=== PATIENT | female | born 1995 | race Caucasian/White ===

== ENCOUNTER 2016-07-17 12:15 | Outpatient (CLI) | payer MEDICAID ==
[~2016-07-17] VITALS: Ht 154.9 cm; Wt 47.2 kg
[2016-07-17] MEDS ORDERED: PREN1TAB17 PO (12:19)
[2016-07-17 12:20] VITALS: Ht 154.9 cm; Wt 47.2 kg
[2016-07-17 12:21] VITALS: BP 100/60; RESP 16
[2016-07-17] MEDS: LACTATED RINGER'S 1,000 ML IV PRN ×2 (12:39→14:29)
--- NOTE | 2016-07-17 14:33 | RADRPT ---
PROCEDURE: US OB biophysical profile. CLINICAL INDICATION: Low EDILIA TECHNIQUE: Multiple sonographic images of the pelvis were obtained. The images were reviewed on a PACS workstation. COMPARISON: No prior studies are available for comparison. FINDINGS: There is a single viable intrauterine gestation. Cardiac activity is present with 144 beats per min [place]. There is a vertex presentation. The placenta is anterior. There is no evidence of placental abruption. There is a low - normal amount of amniotic fluid with an EDILIA = 8.5 cm. Biophysical profile: movement 2/2 tone 2/2. breathing 2/2 EDILIA 2/2 Total 09/23 RPTAT: AA . IMPRESSION: Normal biophysical profile. Low - normal EDILIA of 8.5 cm. Physician Nicole Date Time Electronically viewed and signed by Physician Nicole on 07/17/2016 14:33 /
--- NOTE | 2016-07-17 15:13 | TRIAGE ---
OB Triage Datetime Report Generated by CPN: 07/17/2016 15:12 Datetime: 07/17/2016 13:41 Stage of : OB Triage Labor Evaluation Frequency: 0 Monitor Mode: External Pattern: Normal: <= 5 Contractions in 10 Minutes Resting Tone [place]: Relaxed Heart Rate FHR Baseline Rate: 145 Monitor Mode: External US Variability: Moderate 6-25 bpm Accelerations: 15X15 Decelerations: None Category: Category I Pain Presence: None/Denies Datetime: 07/17/2016 12:26 Stage of : OB Triage Assessment Type: Triage Maternal Assessment Level of Consciousness: Fully Conscious DTR's/Clonus: DTRs 2+; No Clonus Headache: Denies Blurred Vision: No Respiratory Effort: Unlabored; Regular Rhythm; Equal Expansion Breath Sounds, Left: Clear and Equal Breath Sounds, Right: Clear and Equal Nausea/Vomiting: Denies RUQ Epigastric Pain: Denies Lower Extremities Edema: None Degree: None Upper Extremities Edema: None Degree: None Facial Edema: None Temperature Route: Oral Fall Risk Assessment History of Falling: (0) No Secondary Diagnosis: (0) No Ambulatory Aid: (0) Bedrest/Nurse Assist IV Therapy: (0) No Gait: (0) Normal/Bedrest/Immobile Mental Status: (0) Oriented to Own Ability Fall Score: 0 Fall Risk Score Definition: No Risk: No action required Labor Evaluation Frequency: 0 Monitor Mode: External Heart Rate FHR Baseline Rate: 135 Monitor Mode: External US Variability: Moderate 6-25 bpm Accelerations: 15X15 Decelerations: None Pain Assessment Pain Scale: 0 Pain Presence: None/Denies Pain Type: N/A Datetime: 07/17/2016 12:24 Time of Arrival: 07/17/2016 12:19 EGA: 39.1 Arrived By: Ambulatory Arrived From: Dr. Tidwell Chief Complaint: SENT FROM [facility] FOR LOW EDILIA Movement: Present Rupture of Membranes: Denies Vaginal Bleeding: None Vaginal Discharge: Denies Recent Sexual Intercouse: Denies Abdominal Trauma: Not Applicable Patient Complaints: None Time Provider Notified: 07/17/2016 14:30 Provider Notified: DR. MARIA Initial Plan: EFMX2, IV HYDRATION
--- NOTE | 2016-07-17 15:14 | CONS ---
Date/Time of Note Date/Time of Note DATE: 07/17/16 TIME: 15:09 Consultation Date/Type/Reason Admit Date/Time July 17, 2069 OB triage consult Reason for Consultation This patient is a 20 years old 1 para 0 with estimated date of confinement of July 23, 2016 which makes her 39 weeks and 1 day today. She was referred here from [facility] , due to low EDILIA of 7.6cm On general examination she is a well-developed well-nourished lady near term. Her general vital signs are stable blood pressure 100/60, pulse rate 82, respirations 16, and temperature 97.9. On examination her abdomen is soft fetus in vertex presentation she does not have one of much of the contractions no CVA tenderness Hx of Present Illness Current Medications Medications (Trade) Dose Ordered Sig/Lilo Route PRN Reason Start Time Stop Time Status Last Admin Dose Admin Lactated Ringer's (Lr) 1,000 ml @ 1,000 mls/hr Q1H PRN IV low edilia 07/17/16 12:30 07/17/16 14:29 1,000 MLS/HR Constitutional: No chills, No diaphoresis, No disoriented, No febrile, No improved, No no complaints, No other, No poor po, No requiring IVF, No requiring O2 Eyes: No discharge, No no complaints, No other, No pain, No redness, No visual change ENT: No bleeding, No congestion, No discharge, No dysphagia, No no complaints, No other, No pain, No sore throat Respiratory: No cough, No no complaints, No other, No pain, No pleuritic pain, No shortness of breath, No sputum, No wheezing Cardiovascular: No chest pain, No edema, No lightheadedness, No no complaints, No orthopenea, No other, No palpitations, No paroxysmal nocturnal dyspnea Gastrointestinal: No blood, No constipation, No decreased appetite, No diarrhea , No flatus, No nausea, No no complaints, No other, No pain, No passing stool, No vomiting Genitourinary: other (No dysuria), No bleeding, No discharge, No dysuria, No flank pain, No hematuria, No no complaints Musculoskeletal: No back pain, No bone/joint pain, No neck pain, No no complaints, No other, No restricted range of motion, No swelling Skin: No bruising, No erythema, No laceration, No no complaints, No other, No pruritis, No rash, No skin lesions Neurologic: other (Knee-jerk reflex are normal), No confusion, No dizziness, No focal-weakness, No headache, No no complaints , No seizure, No syncope Endocrine: No dry skin, No no complaints, No other, No polydypsia, No polyuria , No temp intolerance Additional Comments Hydration was given and her EDILIA increased to 8.5 cm .Ultrasound study report was single viable intrauterine gestation with cardiac activity 144 bpm ,vertex presentation ,placenta was anterior, and as I mentioned before,EDILIA was reported 8.5 cm Biophysical profile of 09/23 Disposition. With these positive finding patient was discharged home to be followed in the clinic tomorrow for another EDILIA. Social History Smoking Status: Never smoker Exam/Review of Systems Vital Signs Vitals Vital Signs Date Time Temp Pulse Resp B/P Pulse Ox O2 Delivery O2 Flow Rate FiO2 07/17/16 12:21 97.9 16 100/60 Room Air Medications Medications Current Medications Lactated Ringer's (Lr) 1,000 ml @ 1,000 mls/hr Q1H PRN IV low edilia Last administered on 07/17/16t 14:29; Admin Dose 1,000 MLS/HR; Start 07/17/16 at 12:30 ADRIEN SARKAR MD Jul 17, 2016 15:14
--- NOTE | 2016-07-18 14:16 | NSTRPT ---
NST Information Datetime Report Generated by CPN: 07/18/2016 14:16 Datetime: 07/17/2016 10:20 NST Information EGA: 39.1 Datetime: 07/17/2016 10:16 Test Number: 1 Time on Monitor: 07/17/2016 10:39 Time off Monitor: 07/17/2016 11:11 NST Duration (Min): 32 Reason for NST: Other Reason for NST Other: Small for GA Test and Monitor Explained: Monitor Explained; Test Explained; Verbalized Understanding Pulse: 71 Resp: 17 SBP: 100 DBP: 64 Test Evaluation NST Interventions: Reposition Patient Patient States Movement: Present Contraction Frequency: occasional, denies FHR Baseline : 120 Variability: Moderate 6-25bpm Accelerations: 15X15 Decelerations: None FHR Category: Category I NST Results: Reactive Comments: pt to u/s, EDILIA 7.6cm, cephalic. Report given to Dr. Payne. New orders received. Sent deandre gordon to OB-[facility] for IV hydarion and repeat EDILIA. Explained to pt plan of care. Pt states bangin rachana 1114-Pt to hospital undelivered with labor precautions. Follow up [facility] appointment given. Ki ck Count instructions reviewed. Pt states understanding. No further questions asked at this time. Electronically Signed By E-Signature: with User ID: [id number]
== END 2016-07-17 15:15 | disposition home or self-care (01) ==
LOC: OBT 12:15 → L-D 12:15 → OBT 15:15
PROVIDERS: ATTEND Obstetrics & Gynecology
DX: O41.03X0 Oligohydramnios, third trimester, not applicable or unspecified (principal); Z3A.39 39 weeks gestation of pregnancy
CPT/HCPCS: 76818; 96360; 96361; Z7500; G0463

== ENCOUNTER 2016-07-18 14:22 | Outpatient (CLI) | payer MEDICAID ==
[~2016-07-18] VITALS: Ht 152.4 cm; Wt 47.0 kg
[~2016-07-18 14:22] MED LIST: PREN1TAB17 PO
[2016-07-18 14:45] VITALS: Ht 152.4 cm; Wt 47.0 kg
[2016-07-18 14:46] VITALS: BP 102/63; PULSE 78; RESP 16
--- NOTE | 2016-07-18 15:08 | RADRPT ---
PROCEDURE: US OB biophysical profile. CLINICAL INDICATION: decreased movements TECHNIQUE: Multiple sonographic images of the pelvis were obtained. The images were reviewed on a PACS workstation. COMPARISON: 07/17/16 FINDINGS: There is a single viable intrauterine gestation. Cardiac activity is present with 144 beats per min [place]. There is a vertex presentation. The placenta is anterior. There is no evidence of placental abruption. There is a normal amount of amniotic fluid with an EDILIA = 8.4 cm. Biophysical profile: movement 2/2 tone 2/2. breathing 2/2 EDILIA 2/2 Total 09/23 RPTAT: AA . IMPRESSION: Normal biophysical profile. . .Allen Pop MD, MD Date Time Electronically viewed and signed by .Allen Pop MD, MD on 07/18/2016 15:07 .S/
--- NOTE | 2016-07-18 15:29 | TRIAGE ---
OB Triage Datetime Report Generated by CPN: 07/18/2016 15:29 Datetime: 07/18/2016 15:25 Labor Evaluation Frequency: IRREG Monitor Mode: External Duration (sec)2399: 30-100 Quality: Mild Pattern: Normal: <= 5 Contractions in 10 Minutes Resting Tone [place]: Relaxed Heart Rate FHR Baseline Rate: 135 Monitor Mode: External US Variability: Moderate 6-25 bpm Accelerations: 15X15 Decelerations: None Category: Category I Pain Assessment Pain Presence: None/Denies Pain Type: N/A Datetime: 07/18/2016 14:43 Assessment Type: Triage Maternal Assessment Level of Consciousness: Fully Conscious DTR's/Clonus: DTRs 2+; No Clonus Headache: Denies Blurred Vision: No Respiratory Effort: Unlabored; Regular Rhythm; Equal Expansion Breath Sounds, Left: Clear and Equal Breath Sounds, Right: Clear and Equal Nausea/Vomiting: Denies RUQ Epigastric Pain: Denies Facial Edema: None Fall Risk Assessment History of Falling: (0) No Secondary Diagnosis: (0) No Ambulatory Aid: (0) Bedrest/Nurse Assist IV Therapy: (0) No Gait: (0) Normal/Bedrest/Immobile Mental Status: (0) Oriented to Own Ability Fall Score: 0 Fall Risk Score Definition: No Risk: No action required Datetime: 07/18/2016 14:36 Time of Arrival: 07/18/2016 14:30 EGA: 39.2 Arrived By: Ambulatory Arrived From: Home Chief Complaint: Pt. came to hospital for follow up manuelito due to history of low manuelito Movement: Present Contractions: Denies/Absent Rupture of Membranes: Denies Vaginal Bleeding: None Vaginal Discharge: Denies Recent Sexual Intercouse: Denies Abdominal Trauma: Not Applicable Patient Complaints: None Time Provider Notified: 07/18/2016 15:18 Provider Notified: Initial Plan: N[facility], BPP Datetime: 07/17/2016 15:11 Time of Arrival: 07/18/2016 14:30 EGA: 39.2 Arrived By: Ambulatory Arrived From: Home Chief Complaint: Movement: Present Contractions: Denies/Absent Rupture of Membranes: Denies Vaginal Discharge: Denies Recent Sexual Intercouse: Denies Abdominal Trauma: Patient Complaints: None Datetime: 07/17/2016 12:26 Fall Score: 0 Fall Risk Score Definition: No Risk: No action required Datetime: 07/17/2016 12:24 EGA: 39.1
--- NOTE | 2016-07-18 15:41 | QN ---
Documentation Comment 20 years old 1 para 0 EDC of July 23, 2016 seen in the triage referred from [facility] due to low EDILIA today is 8.4 hydration recommended to the patient, advised to return to triage on July 20 to repeat EDILIA patient also given kick count and labor instructions PIEDAD MARIA MD Jul 18, 2016 15:41
== END 2016-07-18 15:35 | disposition home or self-care (01) ==
LOC: OBT 14:22 → L-D 14:23 → OBT 15:35
PROVIDERS: ATTEND Obstetrics & Gynecology
DX: O41.03X0 Oligohydramnios, third trimester, not applicable or unspecified (principal); Z3A.39 39 weeks gestation of pregnancy
CPT/HCPCS: 76818; Z7500; G0463

== ENCOUNTER 2016-07-19 13:56 | Outpatient (CLI) | payer MEDICAID ==
[~2016-07-19] VITALS: Ht 152.4 cm; Wt 48.0 kg
[2016-07-19 14:07] VITALS: Ht 152.4 cm; Wt 48.0 kg
[2016-07-19 14:08] VITALS: BP 109/71; PULSE 86; RESP 20
--- NOTE | 2016-07-19 16:37 | TRIAGE ---
OB Triage Datetime Report Generated by CPN: 07/19/2016 16:37 Datetime: 07/19/2016 14:02 Time of Arrival: 07/19/2016 14:02 EGA: 39.3 Arrived By: Ambulatory Arrived From: Home Chief Complaint: LOW EDILIA Movement: Present Contractions: Denies/Absent Rupture of Membranes: Denies Vaginal Bleeding: None Vaginal Discharge: Denies Recent Sexual Intercouse: Denies Abdominal Trauma: Not Applicable Patient Complaints: None; Other Provider Notified: DR MARIA Initial Plan: EFM,CALL DR MARIA Level of Consciousness: Fully Conscious DTR's/Clonus: DTRs 2+; No Clonus Headache: Denies Blurred Vision: No Respiratory Effort: Unlabored; Regular Rhythm; Equal Expansion Breath Sounds, Left: Clear and Equal Breath Sounds, Right: Clear and Equal Nausea/Vomiting: Denies RUQ Epigastric Pain: Denies Facial Edema: None Temperature Route: Axillary History of Falling: (0) No Secondary Diagnosis: (0) No Ambulatory Aid: (0) Bedrest/Nurse Assist IV Therapy: (0) No Gait: (0) Normal/Bedrest/Immobile Mental Status: (0) Oriented to Own Ability Fall Score: 0 Fall Risk Score Definition: No Risk: No action required Datetime: 07/19/2016 14:00 Level of Consciousness: Fully Conscious DTR's/Clonus: DTRs 2+ Headache: Denies Blurred Vision: No Nausea/Vomiting: Denies RUQ Epigastric Pain: Denies Facial Edema: None Frequency: NONE AT THIS TIME Pattern: Normal: <= 5 Contractions in 10 Minutes FHR Baseline Rate: 145 Monitor Mode: External US FHR Baseline Changes: No Baseline Change Variability: Moderate 6-25 bpm Decelerations: None Category: Category I Pain Scale: 0 Pain Presence: None/Denies Membrane Status: Intact
--- NOTE | 2016-07-19 16:52 | RADRPT ---
PROCEDURE: OB ultrasound for biophysical profile CLINICAL INDICATION: Biophysical profile. . Decreased movement TECHNIQUE: Multiple sonographic images of the pelvis were obtained. Transabdominal views are obta ined. COMPARISON: 07/18/2016 FINDINGS: Single intrauterine gestation. Presentation: Cephalic. Placenta: Anterior. No evidence of placental abruption. No evidence of placenta previa. breathing movement = 2/2 tone = 2/2 motion = 2/2 EDILIA = 2/2 EDILIA = 7.6 cm; previously 8.4 cm. heart rate: 151 beats per minute IMPRESSION: Single intrauterine gestation. Biophysical profile 09/23 EDILIA = 7.6 cm; previously 8.4 cm. RPTAT: AADD .Odin Dominguez MD, Date Time Electronically viewed and signed by .Odin Dominguez MD, on 07/19/2016 16:52 .B/
--- NOTE | 2016-07-19 18:08 | QN ---
Documentation Comment Laborist ROBBI/Dr Payne 20 y.o. G1 with an IUP at 39w 3d here for a follow-up of a low EDILIA. On 07/17 it was 8.5, 07/18 it was 8.4. + FM. No VB or leaking. PMHx: none. PSHx: none. NKDA. BP 109/71 T=97.7 NST:baseline 140 bpm with accels to 170 bpm. No decels. Occasional UC's. BPP 09/23 with an EDILIA of 7.6 cm. CX: 50%/1/-2/VTX. A: IUP at 39w 3d. Low EDILIA. P: Dr Payne was going to keep the pt for induction but then the pt stated that she was supposed to deliver at [place] so we sent her out with the BPP results from the last few visits and told the pt to go to [place] today. CHARLY LEIGH MD Jul 19, 2016 18:08
== END 2016-07-19 17:15 | disposition home or self-care (01) ==
LOC: OBT 13:56 → L-D 13:57 → OBT 17:15
PROVIDERS: ATTEND Obstetrics & Gynecology
DX: O41.03X0 Oligohydramnios, third trimester, not applicable or unspecified (principal); Z3A.39 39 weeks gestation of pregnancy
CPT/HCPCS: 76818; Z7500; G0463